=== PATIENT | male | born 1950 | race Caucasian/White ===

== ENCOUNTER 2020-08-18 08:50 | Inpatient (IN) | payer MEDICARE, OTHER ==
[~2020-08-18] VITALS: Ht 177.8 cm; Wt 71.0 kg
[~2020-08-18 08:50] MED LIST: ALBU90OI INH; ASPI325 PO; ATOR20 PO; CILO100; CLOP75 PO; DIGO.125 PO; IRON18 MG PO; MULVIT PO
[2020-08-18 09:16] LABS: BASOPHILS ABSOLUTE AUTO 0.04 K/mm3 (0.00-0.23); BASOPHILS PERCENT AUTO 0 % (0-2); EOSINOPHILS ABSOLUTE AUTO 0.01 K/mm3 (0.00-0.68); EOSINOPHILS PERCENT AUTO 0 % (0-6); Hematocrit 37.4 % (37.0-53.0); Hemoglobin 12.6 g/dL (13.5-17.5); IMMATURE GRAN ABSOLUTE AUTO 0.18 K/mm3 (0.00-0.10); IMMATURE GRAN PERCENT AUTO 1 % (0-1); LYMPHOCYTES ABSOLUTE AUTO 0.78 K/mm3 (0.84-5.20); LYMPHOCYTES PERCENT AUTO 5 % (21-46); MONOCYTES ABSOLUTE AUTO 1.86 K/mm3 (0.16-1.47); MONOCYTES PERCENT AUTO 11 % (4-13); Mean Corpuscular HGB Conc 33.7 g/dL (31.5-36.5); Mean Corpuscular Volume 80 fL (80-100); Mean Platelet Volume 12.7 fL (9.1-12.4); NEUTROPHILS ABSOLUTE AUTO 13.62 K/mm3 (1.96-9.15); NEUTROPHILS PERCENT AUTO 83 % (41-73); Platelet Count 146 K/mm3 (150-400); RDW Standard Deviation 40.4 fL (35.1-46.3); Red Blood Cell Count 4.66 M/mm3 (4.30-5.90); White Blood Cell Count 16.49 K/mm3 (4.00-11.30)
[2020-08-18 09:38] LABS: Creatine Kinase MB 30.9 ng/mL (0.0-3.6)
[2020-08-18 09:40] LABS: Alanine Aminotransfer (ALT/SGP 64 U/L (12-78); Albumin, Blood 2.1 g/dL (3.4-5.0); Albumin/Globulin Ratio 0.6 (0.8-1.8); Alk Phos 110 U/L (50-136); Aspartate Aminotrans (AST/SGOT 216 U/L (12-37); Bilirubin, Total 1.5 mg/dL (0.1-1.0); Blood Urea Nitrogen 21 mg/dL (8-24); Bun/Creatinine Ratio 27.1 (12.0-20.0); CO2, Blood 17 mmol/L (21-32); Calcium, Blood 7.7 mg/dL (8.5-10.1); Chloride, Blood 85 mmol/L (98-108); Creatinine, Blood 0.78 mg/dL (0.60-1.20); Globulin, Blood 3.5 g/dL (2.2-4.0); Glomerular Filtration Rate >60 (60-); Glucose, Blood 55 mg/dL (70-99); Potassium, Blood 4.4 mmol/L (3.5-5.5); Total Protein, Blood 5.6 g/dL (6.4-8.2)
[2020-08-18 09:46] LABS: Anion Gap 17 mmol/L (6-16); Sodium, Blood 119 mmol/L (136-145)
[2020-08-18 09:56] LABS: CPK Creatine Kinase 1748 U/L (39-308); Creatine Kinase MB Index 1.8 (0.0-4.0)
[2020-08-18] MEDS ORDERED: METO100 PO (13:30)
[2020-08-18] MEDS ORDERED: LISI5 PO (13:30)
[2020-08-18] MEDS ORDERED: PARO10 PO ×2 (13:31→17:22)
[2020-08-18 13:45] LABS: Base Excess Venous -4.2 mmol/L; Bicarbonate Venous 21.3 mmol/L (24.0-30.0); PCO2 Venous 35.8 mmHg (38-42); PO2 Venous 87.1 mmHg (38-42); pH Blood Venous 7.38 (7.34-7.37)
--- NOTE | 2020-08-18 14:15 | NUR ---
PCU 11 CLEAN AT 1415. Called Keeley over José Miguel, asked her to call PCU when ready for report and to admit pt to PCU 11.
[2020-08-18] MEDS ORDERED: ELIQUIS5 M3 PO (14:44)
--- NOTE | 2020-08-18 15:35 | NUR ---
Called ED, got report from RAVI Mina. Anticipate arrival to PCU 11 shortly.
[2020-08-18 15:40] LABS: U Amphetamine Screen Not Detected; U Barbituate Screen Not Detected; U Benzodiazapine Screen Not Detected; U Buprenorphine Screen Not Detected; U Cannabinoids Screen Not Detected; U Cocaine Screen Not Detected; U Methadone Screen Not Detected; U Methamphetamine Screen Not Detected; U Opiates Screen Not Detected; U Oxycodone Screen Not Detected; U Phencyclidine Screen Not Detected; U Propoxyphene Screen Not Detected
[2020-08-18 16:37] LABS: Anion Gap 15 mmol/L (6-16); Blood Urea Nitrogen 21 mg/dL (8-24); Bun/Creatinine Ratio 28.3 (12.0-20.0); CO2, Blood 21 mmol/L (21-32); Chloride, Blood 82 mmol/L (98-108); Creatinine, Blood 0.74 mg/dL (0.60-1.20); Glomerular Filtration Rate >60 (60-); Glucose, Blood 87 mg/dL (70-99); Potassium, Blood 4.5 mmol/L (3.5-5.5); Sodium, Blood 118 mmol/L (136-145)
[2020-08-18 17:45] LABS: Source, Urine Clean Catch
--- NOTE | 2020-08-18 18:35 | NUR ---
Frail, alert and oriented on arrival from the ED. States he is very hungry, but that he hasn't been eating much over the past year, so his "stomach is small". Ate one applesauce and requested mashed potatoes later. Some tremors of his hands noted, but he is tired and said that he wanted to take a nap after he ate. Appears to be sleeping at this time, but awakens easily to conversation. Atrial fibrillation rate 103-106 on arrival from ED, with banana bag infusing. Na level dropped to 118, so that was dc'd and NS restarted at 125/hour as ordered. Heart rate goes up to 150 during activity of eating dinner, but now after administration of metoprolol one hour ago, rate is 93-102. Lungs are coarse and wheezy. Not requiring supplemental oxygen at this time. Frequent, coarse sounding cough producing clear, thin sputum, which pt states is because of a post-nasal drip. Skin appears fragile, with multiple abrasions, skin tears, scabs and bruises. These wounds were cleaned as much as possible and then covered with yellow xeroform gauze and then covered withe kerlix and secured with MT spandage. The pt has no c/o pain. CIWA score 2 at 1730. His daughter Danielle was here when the pt arrived from the ED, and said that a year ago the pt said that he didn't want any one coming to see him because of covid, but she thinks that it probably wasn't a good idea to not check in on him. States she wanted to respect his privacy, but today she discovered that the mobild home that he lives in hasn't been cleaned in a year, and that going forward she will make sure that they check in on him at least one week a month.
[2020-08-18 18:49] LABS: Bilirubin, Urine Neg (Neg); Blood, Urine 1+ (Neg); Glucose Qualitative, Urine Neg (Neg); Ketones, Urine 3+ (Neg); Leukocyte Esterase, Urine Neg (Neg); Nitrite, Urine Neg (Neg); Protein, Urine Neg (Neg); Specific Gravity, Urine 1.025 (1.003-1.022); Urobilinogen, Urine 1+ (Normal)
[2020-08-18 18:55] LABS: Appearance, Urine Clear (Clear); Color, Urine Yellow (P-Yellow)
[2020-08-18 18:57] LABS: Amorphous Light (0-Heavy); Bacteria Rare /hpf; Hyaline Casts 25-50 /lpf (0-2); Mucus Light (0-Heavy); Squamous Epithelial Cells Rare /hpf (Few); White Blood Cells, Urine Not Seen /hpf (0-5)
[2020-08-19 04:33] LABS: BASOPHILS ABSOLUTE AUTO 0.01 K/mm3 (0.00-0.23); BASOPHILS PERCENT AUTO 0 % (0-2); EOSINOPHILS ABSOLUTE AUTO 0.09 K/mm3 (0.00-0.68); EOSINOPHILS PERCENT AUTO 1 % (0-6); Hematocrit 30.9 % (37.0-53.0); Hemoglobin 10.4 g/dL (13.5-17.5); IMMATURE GRAN ABSOLUTE AUTO 0.13 K/mm3 (0.00-0.10); IMMATURE GRAN PERCENT AUTO 1 % (0-1); LYMPHOCYTES ABSOLUTE AUTO 0.76 K/mm3 (0.84-5.20); LYMPHOCYTES PERCENT AUTO 7 % (21-46); MONOCYTES ABSOLUTE AUTO 1.23 K/mm3 (0.16-1.47); MONOCYTES PERCENT AUTO 12 % (4-13); Mean Corpuscular HGB 26.7 pg (26.0-34.0); Mean Corpuscular HGB Conc 33.7 g/dL (31.5-36.5); Mean Corpuscular Volume 79 fL (80-100); Mean Platelet Volume 12.1 fL (9.1-12.4); NEUTROPHILS ABSOLUTE AUTO 8.17 K/mm3 (1.96-9.15); NEUTROPHILS PERCENT AUTO 79 % (41-73); Platelet Count 116 K/mm3 (150-400); RDW Standard Deviation 40.2 fL (35.1-46.3); White Blood Cell Count 10.39 K/mm3 (4.00-11.30)
[2020-08-19 04:57] LABS: Alanine Aminotransfer (ALT/SGP 57 U/L (12-78); Albumin, Blood 1.9 g/dL (3.4-5.0); Albumin/Globulin Ratio 0.6 (0.8-1.8); Alk Phos 94 U/L (50-136); Anion Gap 11 mmol/L (6-16); Aspartate Aminotrans (AST/SGOT 158 U/L (12-37); Bilirubin, Total 1.2 mg/dL (0.1-1.0); Blood Urea Nitrogen 15 mg/dL (8-24); Bun/Creatinine Ratio 23.7 (12.0-20.0); CO2, Blood 22 mmol/L (21-32); CPK Creatine Kinase 741 U/L (39-308); Calcium, Blood 7.8 mg/dL (8.5-10.1); Chloride, Blood 90 mmol/L (98-108); Creatinine, Blood 0.63 mg/dL (0.60-1.20); Glomerular Filtration Rate >60 (60-); Glucose, Blood 87 mg/dL (70-99); Magnesium, Blood 1.6 mg/dL (1.6-2.4); Phosphorus, Blood 2.6 mg/dL (2.5-4.9); Potassium, Blood 4.1 mmol/L (3.5-5.5); Sodium, Blood 123 mmol/L (136-145); Total Protein, Blood 4.9 g/dL (6.4-8.2)
--- NOTE | 2020-08-19 05:13 | NUR ---
SHIFT SUMMARY PATIENT IS ALERT AND ORIENTED. CIWA 8 AT BEGINNING OF SHIFT, MEDICATED PER EMAR. CIWA OF 4 THE REST OF SHIFT. PATIENT DOES NOT USE CALL LIGHT, BED ALARM NEEDED. A.FIB 80s-110. PATIENT SLEPT MOST THE NIGHT. 2 PERSON ASSIST TO BSC. ROLLS TO SIDE INDEPENDENTLY IN BED. 02 SATS >95% ON RA. VSS, NO ACUTE CHANGES. CALL LIGHT IN REACH. BED ALARM ON.
--- NOTE | 2020-08-19 11:58 | NUR ---
PATIENT BECAME VERY LETHARGIC AND IS DIFFICULT TO ROUSE. MD ASSESSED PATIENT. BP 89/59. DR RICKETTS GAVE VERBAL ORDERS FOR 1L BOLUS OF NS.
[2020-08-19] MEDS ORDERED: LANOXIN125 MCG PO (14:30)
[2020-08-19] MEDS ORDERED: GABA300 PO (14:32)
[2020-08-19] MEDS ORDERED: CLOT10 MT (14:34)
--- NOTE | 2020-08-19 15:45 | NUR ---
PATIENT HAS BEEN UP AND DOWN WITH HIS ALERTNESS TODAY. HE IS SITTING UPRIGHT EATING AND TALKING ONE MOMENT, THEN THE NEXT MOMENT HE'S SLEEPING, VERY LETHARGIC AND DIFFICULT TO AROUSE. PATIENT COMPLETED 1L IV BOLUS AND CONTINUES ON NS @ 125/HR PER EMAR. BP RUNNING LOW. PATIENT IS ASLEEP IN BED AT THIS TIME. PATIENT REPOSITIONED NEEDED TO GET PRESSURE OFF HIS BUTTOCKS. PATIENT ASLEEP IN BED AT THIS TIME. CALL LIGHT WITHIN REACH.
[2020-08-20 04:17] LABS: Alanine Aminotransfer (ALT/SGP 58 U/L (12-78); Albumin, Blood 1.8 g/dL (3.4-5.0); Albumin/Globulin Ratio 0.6 (0.8-1.8); Alk Phos 91 U/L (50-136); Anion Gap 8 mmol/L (6-16); Aspartate Aminotrans (AST/SGOT 120 U/L (12-37); Bilirubin, Total 0.8 mg/dL (0.1-1.0); Blood Urea Nitrogen 9 mg/dL (8-24); Bun/Creatinine Ratio 16.7 (12.0-20.0); CO2, Blood 25 mmol/L (21-32); Calcium, Blood 7.7 mg/dL (8.5-10.1); Chloride, Blood 97 mmol/L (98-108); Creatinine, Blood 0.54 mg/dL (0.60-1.20); Glomerular Filtration Rate >60 (60-); Glucose, Blood 99 mg/dL (70-99); Magnesium, Blood 1.6 mg/dL (1.6-2.4); Potassium, Blood 3.6 mmol/L (3.5-5.5); Sodium, Blood 130 mmol/L (136-145); Total Protein, Blood 4.8 g/dL (6.4-8.2)
--- NOTE | 2020-08-20 04:54 | NUR ---
SHIFT SUMMARY PATIENT IS ALERT AND ORIENTED, HAS MOMENTS OF CONFUSION BUT IS EASILY REORIENTED. COOPERATIVE WITH CARE. PATIENTS ARM WOUNDS WEEPING, BANDAGES CHANGED TWICE ALONG WITH BED LINENS. 02 SATS >95% ON RA. REPOSITOINED PATIENT Q2 HOURS. HR 80s-110, INCREASES WITH ACTIVITY. PATIENT USES URINAL BUT HAS MOMENTS OF INCONTINENCE. VSS, NO ACUTE CHANGES. CALL LIGHT IN REACH, BED ALARM ON.
[2020-08-20 05:46] LABS: BASOPHILS ABSOLUTE AUTO 0.02 K/mm3 (0.00-0.23); BASOPHILS PERCENT AUTO 0 % (0-2); EOSINOPHILS ABSOLUTE AUTO 0.13 K/mm3 (0.00-0.68); EOSINOPHILS PERCENT AUTO 2 % (0-6); IMMATURE GRAN ABSOLUTE AUTO 0.09 K/mm3 (0.00-0.10); IMMATURE GRAN PERCENT AUTO 1 % (0-1); LYMPHOCYTES ABSOLUTE AUTO 0.69 K/mm3 (0.84-5.20); LYMPHOCYTES PERCENT AUTO 8 % (21-46); MONOCYTES ABSOLUTE AUTO 1.16 K/mm3 (0.16-1.47); MONOCYTES PERCENT AUTO 14 % (4-13); Mean Corpuscular HGB 26.7 pg (26.0-34.0); Mean Corpuscular HGB Conc 33.3 g/dL (31.5-36.5); Mean Corpuscular Volume 80 fL (80-100); Mean Platelet Volume 12.8 fL (9.1-12.4); NEUTROPHILS ABSOLUTE AUTO 6.41 K/mm3 (1.96-9.15); NEUTROPHILS PERCENT AUTO 76 % (41-73); Platelet Count 123 K/mm3 (150-400); RDW Coefficient Variation 14.4 % (11.7-14.2); RDW Standard Deviation 41.7 fL (35.1-46.3); Red Blood Cell Count 3.75 M/mm3 (4.30-5.90)
--- NOTE | 2020-08-20 09:28 | NUR ---
RETURNED TO PATIENTS DAUGHTER AND GAVE AN UPDATE.
--- NOTE | 2020-08-20 15:37 | NUR ---
PATIENT CONTINUES TO BE LETHARGIC AND SLEEPING THE MAJORITY OF THE DAY. HE DOES AWAKEN TO PAIN; AND HAS AWAKEN PERIODICALLY T/O THE DAY AND COMMUNICATED WITH STAFF. BP WAS ELEVATED AT NOON HOWEVER PATIENT HAD NOT HAD HIS MORNING MEDICATIONS D/T LETHARGY. PATIENT TOOK HIS MEDICATIONS AT THAT TIME AND HIS VITALS ARE ALL STABLE AND WNL AT THIS TIME. MEDS GIVEN IN APPLESAUCE AND PATIENT TOOK WITHOUT PROBLEM. WOUND CARE PROVIDED TO ALL WOUNDS AT [facility]. CLEASED SKIN TEARS WITH WOUND CLEANSER AND GAUZE AND WRAPPED THEM WITH XEROFORM, NON-ADHERANT PADS, ABD PADS AND KERLIX. PATIENT TOLERATED WELL. PATIENT IS NOW RESTING IN BED WATCHING TV. PATIENT REPOSITIONED PER HIS REQUEST. CALL LIGHT WITHIN REACH.
--- NOTE | 2020-08-21 04:05 | NUR ---
FIELD EVIDENCE TECHNICIAN SUMMARY PT WAS AWAKE AT THE START OF THE SHIFT TALKING TO US AND WATCHING TV. THE PT DENIED ANY PAIN OR NAUSEA THIS SHIFT. CIWA'S HAVE BEEN A 2 DUE TO A CONSTANT TREMOR HOWEVER NO CIWA MEDICATIONS GIVEN BUT PT AGAIN BECAME SOMEWHAT OBTUNDED HE SLEPT VERY HEAVILY THROUGHOUT THE SHIFT. PT HAS REMAINED AFIB IN THE 80-90'S THROUGHOUT THE SHIFT. BANDAGES CHANGED ON LEFT ARM DUE TO EXCESSIVE WEEPING. THE PT HAS MAINTAINED O2 SATS >95% ON RM AIR. VSS, WCTM.
[2020-08-21 08:46] LABS: BASOPHILS ABSOLUTE AUTO 0.02 K/mm3 (0.00-0.23); BASOPHILS PERCENT AUTO 0 % (0-2); EOSINOPHILS ABSOLUTE AUTO 0.12 K/mm3 (0.00-0.68); EOSINOPHILS PERCENT AUTO 2 % (0-6); Hematocrit 31.6 % (37.0-53.0); Hemoglobin 10.5 g/dL (13.5-17.5); IMMATURE GRAN ABSOLUTE AUTO 0.07 K/mm3 (0.00-0.10); IMMATURE GRAN PERCENT AUTO 1 % (0-1); LYMPHOCYTES ABSOLUTE AUTO 0.67 K/mm3 (0.84-5.20); LYMPHOCYTES PERCENT AUTO 9 % (21-46); MONOCYTES ABSOLUTE AUTO 1.09 K/mm3 (0.16-1.47); MONOCYTES PERCENT AUTO 14 % (4-13); Mean Corpuscular HGB 26.6 pg (26.0-34.0); Mean Corpuscular HGB Conc 33.2 g/dL (31.5-36.5); Mean Corpuscular Volume 80 fL (80-100); Mean Platelet Volume 11.9 fL (9.1-12.4); NEUTROPHILS ABSOLUTE AUTO 5.62 K/mm3 (1.96-9.15); NEUTROPHILS PERCENT AUTO 74 % (41-73); Platelet Count 124 K/mm3 (150-400); RDW Coefficient Variation 14.5 % (11.7-14.2); RDW Standard Deviation 42.2 fL (35.1-46.3); Red Blood Cell Count 3.94 M/mm3 (4.30-5.90); White Blood Cell Count 7.59 K/mm3 (4.00-11.30)
[2020-08-21 09:07] LABS: Albumin, Blood 1.8 g/dL (3.4-5.0); Anion Gap 7 mmol/L (6-16); Blood Urea Nitrogen 5 mg/dL (8-24); Bun/Creatinine Ratio 9.6 (12.0-20.0); CO2, Blood 26 mmol/L (21-32); Calcium, Blood 7.8 mg/dL (8.5-10.1); Chloride, Blood 101 mmol/L (98-108); Creatinine, Blood 0.52 mg/dL (0.60-1.20); Glomerular Filtration Rate >60 (60-); Glucose, Blood 91 mg/dL (70-99); Magnesium, Blood 1.3 mg/dL (1.6-2.4); Phosphorus, Blood 2.8 mg/dL (2.5-4.9); Potassium, Blood 3.4 mmol/L (3.5-5.5); Sodium, Blood 134 mmol/L (136-145)
--- NOTE | 2020-08-21 19:26 | NUR ---
SHIFT SUMMARY: PT A&O T/OUT SHIFT WITH PERIODS OF REST BUT EASY TO AROUSE. RESP EVEN AND UNLABORED ON ROOM AIR. PT IN AFIB T/OUT SHIFT AND HR FOUND TO BE TRENDING UPWARD OF 130-200 BPM AT TIMES, PT DENIES SOB OR CHEST PAIN. PROVIDER NOTIFIED, ORDERS PLACED. DRESSINGS TO BUE REMOVED, WOUNDS CLEANED AND LEFT OPEN TO AIR. PT RECEIVED BED BATH THIS AFTERNOON, OPEN WOUND NOTED TO COCCYX, MEPILEX PLACED TO COCCYX. PT REQUIRED 3 ATTEMPTS WITH URINAL TO PRODUCE OUTPUT, PT STATES THIS IS NORMAL FOR HIM. AT THIS TIME PT IS RESTING QUIETLY IN BED. REPORT HAS BEEN GIVEN TO RAVI SALEH TO ASSUME CARE OF PT.
--- NOTE | 2020-08-22 04:04 | NUR ---
NATIONAL ACCOUNT MANAGER SUMMARY PT IS MORE AWAKE THIS SHIFT COMPARED TO PREVIOUS NIGHT BUT STATES THAT HE WANTS TO BE LEFT ALONE TO SLEEP. CIWA'S REMAIN A 2 DUE TO TREMOR BUT NO NEW NEUR S/S. AMIODARONE GTT STARTED AT 2000 AND RATE REDUCED AT 0200, PTS HR IS STILL AFIB BUT NOW AVERAGING AROUND 90 BPM. PT IS RECEIVING NS AT 125ML/HR BUT VOIDING ALMOST NO URINE AND BLADDER SCANS SHOW <250ML. PT HAS ALOT OF SECRETIONS BUT HAS MAINTAINED >95% O2 ON RM AIR. WOUNDS WERE LEFT TO AIR OUT FOR MUCH OF DAYSHIFT AND CLEANED AND WRAPPED FOR HS. VSS, WCTM.
[2020-08-22 12:06] LABS: Albumin, Blood 1.8 g/dL (3.4-5.0); Anion Gap 7 mmol/L (6-16); Blood Urea Nitrogen 6 mg/dL (8-24); Bun/Creatinine Ratio 12.1 (12.0-20.0); CO2, Blood 25 mmol/L (21-32); Calcium, Blood 7.7 mg/dL (8.5-10.1); Chloride, Blood 104 mmol/L (98-108); Glomerular Filtration Rate >60 (60-); Glucose, Blood 112 mg/dL (70-99); Magnesium, Blood 1.5 mg/dL (1.6-2.4); Phosphorus, Blood 2.7 mg/dL (2.5-4.9); Potassium, Blood 4.1 mmol/L (3.5-5.5); Sodium, Blood 136 mmol/L (136-145)
[2020-08-22 12:25] LABS: BASOPHILS ABSOLUTE AUTO 0.05 K/mm3 (0.00-0.23); BASOPHILS PERCENT AUTO 1 % (0-2); EOSINOPHILS ABSOLUTE AUTO 0.03 K/mm3 (0.00-0.68); EOSINOPHILS PERCENT AUTO 0 % (0-6); Hemoglobin 10.3 g/dL (13.5-17.5); IMMATURE GRAN PERCENT AUTO 1 % (0-1); LYMPHOCYTES ABSOLUTE AUTO 0.61 K/mm3 (0.84-5.20); LYMPHOCYTES PERCENT AUTO 7 % (21-46); MONOCYTES ABSOLUTE AUTO 1.29 K/mm3 (0.16-1.47); MONOCYTES PERCENT AUTO 15 % (4-13); Mean Corpuscular HGB 27.2 pg (26.0-34.0); Mean Corpuscular HGB Conc 33.2 g/dL (31.5-36.5); Mean Corpuscular Volume 82 fL (80-100); Mean Platelet Volume 12.6 fL (9.1-12.4); NEUTROPHILS ABSOLUTE AUTO 6.49 K/mm3 (1.96-9.15); NEUTROPHILS PERCENT AUTO 76 % (41-73); Platelet Count 149 K/mm3 (150-400); RDW Coefficient Variation 14.8 % (11.7-14.2); RDW Standard Deviation 43.6 fL (35.1-46.3); Red Blood Cell Count 3.79 M/mm3 (4.30-5.90); White Blood Cell Count 8.57 K/mm3 (4.00-11.30)
--- NOTE | 2020-08-22 15:38 | NUR ---
Daughter Danielle here, visited with patient and then also had conversation with myself and maintenance planner, Amara Connolly RN. Danielle will be back tomorrow to machine operator hop picker information from maintenance planner in order to help facilitate pt's discharge to SNF (most likely), and set up for [employer] assistance for pt's future needs. Francis has not been eating today, and mostly just wants to sleep when he is not being given care. His daughter says that he went back to drinking after he lost his . Encouraged Francis to eat and drink to regain strength, and get up OOB to the chair 2-3 times per day to help gain strength so that he he will be able to eventually return to a more independent living situation.
--- NOTE | 2020-08-22 17:28 | NUR ---
amiodarone gtt off after talking with Dr. Real and discussing pt's heart rate and blood pressure. Heart rate has been 60-80 at rest since receiving 2nd dose of metoprolol.
--- NOTE | 2020-08-22 17:43 | NUR ---
Pt refused to get OOB to chair for dinner. Refused to sit on side of bed for eating. Sitting upright, as much as is possible, eating mechanical soft diet in bed.
--- NOTE | 2020-08-22 18:10 | NUR ---
summary Pt is awake, cooperative and oriented, but affect withdrawn. Refused breakfast and lunch. Ate dinner, but refused OOB to chair for both the therapist and the nursing staff today. Did get up and use the BSC once. Heart rate much better controlled with the second dose of metoprolol this morning, bradycardia to 50s reported to Dr. Real as well, while sleeping. Amiodarone gtt off this evening. Need to verify home medications again with pharmacy; pt states that he is only taking 3 medications at home, but that he had more prescribed to him. STates that they were too expensive, especially the eliquis, so he was trying to take the ones that were for his heart, and leave the other ones unfilled. His step-daughter Danielle was here this afternoon, spoke with space planner. I spoke with daughter Jaimee by phone this afternoon, and she is planning on coming to the hospital tomorrow during visiting hours. Updated her on pt condition, and the probable plan for his discharge to a SNF for rehab.
--- NOTE | 2020-08-22 22:00 | NUR ---
REFUSED CARE PT'S MEPILEX WAS REMOVED FROM COCCYX AFTER IT WAS SOILD FROM HAVING A BM ON THE BSC. ONCE THE PT WAS RETURNED TO BED HE REFUSED TO ALLOW ME TO PLACE ANOTHER MEPILEX ON HIS COCCYX. I WILL ATTEMPT TO REPLACE IT AT A LATER TIME. PT DID ALLOW ME TO CHANGE DRESSINGS ON ARMS.
[2020-08-23 04:38] LABS: Albumin, Blood 1.7 g/dL (3.4-5.0); Anion Gap 5 mmol/L (6-16); Blood Urea Nitrogen 6 mg/dL (8-24); Bun/Creatinine Ratio 11.7 (12.0-20.0); CO2, Blood 27 mmol/L (21-32); Calcium, Blood 7.4 mg/dL (8.5-10.1); Chloride, Blood 105 mmol/L (98-108); Creatinine, Blood 0.51 mg/dL (0.60-1.20); Glomerular Filtration Rate >60 (60-); Glucose, Blood 102 mg/dL (70-99); Magnesium, Blood 1.6 mg/dL (1.6-2.4); Phosphorus, Blood 2.8 mg/dL (2.5-4.9); Potassium, Blood 3.9 mmol/L (3.5-5.5); Sodium, Blood 137 mmol/L (136-145)
--- NOTE | 2020-08-23 04:44 | NUR ---
LEAF COVERER SUMMARY THE PT IS MUCH MORE AWAKE THIS SHIFT COMPARED TO THE PREVIOUS NIGHT. THE PT WAS ABLE TO GET TO THE BSC AND HAVE A BM AT THE START OF THE SHIFT. THE PT HAS BEEN AWAKE FOR MOST OF THE NIGHT. THE PT HAS HAD BETTER URINE OUTPUT THIS SHIFT COMPARED TO PREVIOUS NIGHT. O2 SAT >94% ON RM AIR. BP HAS BEEN ELEVATED THIS SHIFT SO DR. STAPLETON WAS CONTACTED THIS AM AND 10MG OF LISINOPRIL WAS ORDERED AND GIVEN. PT'S HR HAS REMAINED AFIBE AVERAGING HIGH 80'S TO MID 90'S BPM. CIWA'S HAVE REMAINED AT A ONE HIS TREMOR SEEMS REDUCED FROM PAST TWO NIGHTS. WCTM.
[2020-08-23 12:23] LABS: Influenza A, PCR NEGATIVE (NEGATIVE); Influenza B, PCR NEGATIVE (NEGATIVE); Resp Syncytial Virus, PCR NEGATIVE (NEGATIVE); SARS-Cov-2 (COVID-19) PCR, MMC NEGATIVE (NEGATIVE)
--- NOTE | 2020-08-23 12:38 | NUR ---
"Francis" is alert, oriented, appropriate in conversation, but withdrawn and often refusing meals or OOB for activity. He has only wanted to use the urinal in bed, occasionally eat a meal, and sleep in between any of those activities. Seems very withdrawn and perhaps depressed. Asked what his plan is for oil heaterman, and he says that he doesn't know yet. Asked if he is talking with his daughters about that, and he says not yet. Coarse, nonproductive cough without sputum production. Encouraged to use the incentive spirometer, but he so far has not shown any interest. Skin is fragile, with wounds as documented. The old dressings were noted to be saturated with serous fluid, and so were removed and cleansed with skitegrity, and covered with xeroform/nonadherent dressings and then secured with additional absorbent material and kerlix, and MT spandage at noon. Pt tolerated the wound care, stated that it did not hurt. The wound beds were noted to have healthy granulation tissue in them, without the scabs and carpet fluff/dog hair which was embedded in them upon his arrival at admission. Photo documentation update unable to complete as camera was not working. Pt was up to chair with therapist, and also to bedside commode. Plan is for discharge to [facility] today at 2 pm.
[2020-08-23] MEDS ORDERED: ALBU2.5V5 INH (13:11)
[2020-08-23] MEDS ORDERED: ATOR20 PO (13:12)
[2020-08-23] MEDS ORDERED: MAGNESIUM OXID500 MG PO (13:12)
--- NOTE | 2020-08-23 13:31 | NUR ---
Pt's family here at the bedside. Updated on pt's condition and plan for transfer to [facility] expected around [address] [facility] at this time to give report.
--- NOTE | 2020-08-23 14:24 | NUR ---
Spoke with daughters and Workers Compensation Claims Supervisor Amara Barth in the pt's room just before discharge. Concern was expressed by the daughters because the pt will not be able to have visitors and they are concerned that without visitors the pt might be neglected and no one would know. Amara was able to explain more about the care given at SNF rehab, and how the would be able to communicate with the SNF as well. After discussing the situation, the pt said to his daughters, "Ok, let's give it a try," Daughters were also in agreement. Transport arrived at 1405 and pt was helped into wheelchair by FINANCIAL COMPLIANCE EXAMINER and FINANCIAL COMPLIANCE EXAMINER student, and taken out.
== END 2020-08-23 14:07 | DRG 896 ==
LOC: ER 08:50 → PCU 12:23 → ERHOLD 12:23 → PCU 16:00
PROVIDERS: Emergency Medicine; Internal Medicine; Nurse Practitioner Acute Care; ADMIT Family Medicine
DX: F10.239 Alcohol dependence with withdrawal, unspecified (principal); E43 Unspecified severe protein-calorie malnutrition; G92 Toxic encephalopathy; I48.20 Chronic atrial fibrillation, unspecified; S22.49XA Multiple fractures of ribs, unspecified side, initial encounter for closed fracture; E87.1 Hypo-osmolality and hyponatremia; M62.82 Rhabdomyolysis; R65.10 Systemic inflammatory response syndrome (SIRS) of non-infectious origin without acute organ dysfunction; E87.2 Acidosis; Z68.1 Body mass index [BMI] 19.9 or less, adult; Z20.822 Contact with and (suspected) exposure to COVID-19; F17.210 Nicotine dependence, cigarettes, uncomplicated; J44.9 Chronic obstructive pulmonary disease, unspecified; I73.9 Peripheral vascular disease, unspecified; I10 Essential (primary) hypertension; E86.0 Dehydration; E83.42 Hypomagnesemia; R13.10 Dysphagia, unspecified; Z74.09 Other reduced mobility; R26.9 Unspecified abnormalities of gait and mobility; W19.XXXA Unspecified fall, initial encounter; Y92.009 Unspecified place in unspecified non-institutional (private) residence as the place of occurrence of the external cause; Z95.820 Peripheral vascular angioplasty status with implants and grafts; Z79.899 Other long term (current) drug therapy
CPT/HCPCS: 0241U; 36415; 70450; 71045; 72100; 72192; 73030; 73502; 80048; 80053; 80069; 81001; 82550; 82553; 82803; 82947; 83605; 83735; 84100; 84295; 84443; 84484; 84550; 85025; 92526; 92610; 93005; 93010; 94760; 94762; 96374; 96375; 97110; 97161; 97165; 97530; 99285-25; A9270; C1751; J0282; J1160; J3411; J3475; J7030; J7042; J7060

== ENCOUNTER 2020-08-26 22:03 | Inpatient (IN) | payer MEDICARE, OTHER ==
[~2020-08-26] VITALS: Ht 182.9 cm; Wt 75.3 kg
[~2020-08-26 22:03] MED LIST changes: +ALBU2.5V5 INH; +CLOT10 MT; +ELIQUIS5 M3 PO; +GABA300 PO; +LANOXIN125 MCG PO; +LISI5 PO; +MAGNESIUM OXID500 MG PO; +METO100 PO; +PARO10 PO
[2020-08-26 22:20] LABS: Calcium, Ionized (POC) 1.04 mmol/L (1.10-1.46); Chloride (POC) 108 mmol/L (98-108); Creatinine (POC) 1.6 mg/dL (0.8-1.3); Glucose (ISTAT POC) 232 mg/dL (70-99); Hemoglobin (POC) 9.2 g/dL (13.5-17.5); Potassium (POC) 4.1 mmol/L (3.5-5.5); Sodium (POC) 138 mmol/L (135-148); Total CO2 (POC) 23 mmol/L (21-32)
[2020-08-26 22:44] LABS: PO2 Arterial 96.2 mmHg (80-100)
[2020-08-26 22:45] LABS: PCO2 Arterial 65.1 mmHg (35-45); pH Blood Arterial 7.26 (7.35-7.45)
[2020-08-26 22:50] LABS: Hematocrit 34.8 % (37.0-53.0); Hemoglobin 10.7 g/dL (13.5-17.5); Mean Corpuscular HGB 26.6 pg (26.0-34.0); Mean Corpuscular HGB Conc 30.7 g/dL (31.5-36.5); Mean Corpuscular Volume 87 fL (80-100); Mean Platelet Volume 11.9 fL (9.1-12.4); Platelet Count 162 K/mm3 (150-400); RDW Coefficient Variation 14.7 % (11.7-14.2); RDW Standard Deviation 46.8 fL (35.1-46.3); Red Blood Cell Count 4.02 M/mm3 (4.30-5.90); White Blood Cell Count 10.78 K/mm3 (4.00-11.30)
[2020-08-26 23:05] LABS: International Normalized Ratio 1.36; Prothrombin Time Results 14.3 Sec (9.7-11.5)
[2020-08-26 23:11] LABS: Alanine Aminotransfer (ALT/SGP 61 U/L (12-78); Albumin, Blood 1.5 g/dL (3.4-5.0); Albumin/Globulin Ratio 0.5 (0.8-1.8); Alk Phos 104 U/L (50-136); Anion Gap 7 mmol/L (6-16); Aspartate Aminotrans (AST/SGOT 67 U/L (12-37); BAND PERCENT MAN 33 % (0-8); BASOPHILS PERCENT MAN 0 % (0-2); Bilirubin, Total 0.4 mg/dL (0.1-1.0); Blood Urea Nitrogen 16 mg/dL (8-24); Bun/Creatinine Ratio 19.1 (12.0-20.0); CO2, Blood 32 mmol/L (21-32); Calcium, Blood 7.8 mg/dL (8.5-10.1); Chloride, Blood 105 mmol/L (98-108); Creatinine, Blood 0.84 mg/dL (0.60-1.20); EOSINOPHILS PERCENT MAN 0 % (0-6); Ethanol (Alcohol), Blood, Med <3 mg/dL; Globulin, Blood 3.3 g/dL (2.2-4.0); Glomerular Filtration Rate >60 (60-); Glucose, Blood 151 mg/dL (70-99); LYMPHOCYTES ABSOLUTE MAN 0.64 K/mm3 (0.84-5.20); LYMPHOCYTES PERCENT MAN 6 % (21-46); METAMYELOCYTE PERCENT MAN 1 % (0-0); MONOCYTES ABSOLUTE MAN 0.75 K/mm3 (0.16-1.47); MONOCYTES PERCENT MAN 7 % (4-13); MYELOCYTE ABSOLUTE MAN 0.32 K/mm3 (0.00-0.00); MYELOCYTE PERCENT MAN 3 % (0-0); Magnesium, Blood 3.1 mg/dL (1.6-2.4); NEUTROPHILS ABSOLUTE MAN 8.94 K/mm3 (1.96-9.15); Potassium, Blood 3.8 mmol/L (3.5-5.5); SEG NEUTROPHILS PERCENT MAN 50 % (41-73); Sodium, Blood 144 mmol/L (136-145); TOTAL CELLS COUNTED 100; Total Protein, Blood 4.8 g/dL (6.4-8.2); Troponin I 0.021 ng/mL (0.000-0.040)
[2020-08-26 23:20] LABS: CPK Creatine Kinase 58 U/L (39-308)
--- NOTE | 2020-08-26 23:30 | NUR ---
Patient's daughters are in ER family consult rm. They tell me about patient's loss of his spouse, his medical history and his alcoholism. They tell me about their regrets and fears. I conduct a life review of patient, and provide therapeutic listening, pastoral risk reduction counselor, and prayer. They repond well and show signs of being comforted.
[2020-08-26 23:43] LABS: Influenza A, PCR NEGATIVE (NEGATIVE); Influenza B, PCR NEGATIVE (NEGATIVE); Resp Syncytial Virus, PCR NEGATIVE (NEGATIVE); SARS-Cov-2 (COVID-19) PCR, MMC NEGATIVE (NEGATIVE)
--- NOTE | 2020-08-27 00:50 | NUR ---
ADMIT RECEIVED FROM ER- INTUBATED AC 24, TV 400, PEEP 5, FIO2 60%. ETT 7.5, 26 AT GUMS. SEDATED WITH PROPOFOL AT 10MCG/KG/MIN. PT MOVES ALL EXTREMITIES AND WITHDRAWS FROM NOXIOUS STIMULI. NOT FOLLOWING COMMANDS. LOCALIZES PAIN. HR 90s-100S, APPEARS TO BE NSR, BUT IT HARD TO SEE D/T PT SHAKING. BP STABLE WITH LEVOPHED INFUSING AT 20MCG/MIN. AFEBRILE. OG PLACED TO LIS- NO DRAINAGE NOTED AT THIS TIME. WRIGHT PATENT AND DRAINING DARK YELLOW URINE. RIJ CENTRAL LINE NOTED. MULTIPLE SKIN TEARS NOTED- PICTURES TAKEN. COCCYX SLIGHTLY PINK. SEE ADMIT ASSESSMENT FOR FULL ASSESSMENT.
[2020-08-27 01:48] LABS: Source, Urine Catheter
[2020-08-27 01:55] LABS: Bilirubin, Urine Neg (Neg); Blood, Urine 3+ (Neg); Glucose Qualitative, Urine Neg (Neg); Ketones, Urine Neg (Neg); Leukocyte Esterase, Urine Neg (Neg); Nitrite, Urine Neg (Neg); Protein, Urine 2+ (Neg); Specific Gravity, Urine 1.025 (1.003-1.022); Urobilinogen, Urine NORM (Normal)
[2020-08-27 01:58] LABS: Appearance, Urine Turbid (Clear); Color, Urine Yellow (P-Yellow)
[2020-08-27 02:05] LABS: Amorphous Heavy (0-Heavy); Bacteria Rare /hpf; Squamous Epithelial Cells Rare /hpf (Few); White Blood Cells, Urine Rare /hpf (0-5)
[2020-08-27 02:06] LABS: U Amphetamine Screen Not Detected; U Barbituate Screen Not Detected; U Benzodiazapine Screen DETECTED; U Buprenorphine Screen Not Detected; U Cannabinoids Screen Not Detected; U Cocaine Screen Not Detected; U Methadone Screen Not Detected; U Methamphetamine Screen Not Detected; U Opiates Screen Not Detected; U Oxycodone Screen Not Detected; U Phencyclidine Screen Not Detected; U Propoxyphene Screen Not Detected
[2020-08-27 05:03] LABS: PCO2 Arterial 36.4 mmHg (35-45); PO2 Arterial 66.6 mmHg (80-100); pH Blood Arterial 7.44 (7.35-7.45)
--- NOTE | 2020-08-27 05:55 | NUR ---
SHIFT SUMMARY NO ACUTE CHANGES. REMAINS INTUBATED. PROPOFOL NOW AT 30MCG/KG/MIN. CONTINUES TO WITHDRAW TO NOXIOUS STIMULI. MOVES ALL EXTREMITIES WEAKLY, BUT NOT FOLLOWING COMMANDS. BILATERAL SOFT WRIST RESTRAINTS REMAIN IN PLACE. OCCASIONAL FACIAL GRIMACING NOTED. LEVOPHED NOW AT 8MCG/MIN- BP STABLE. HR 90s. AFEBRILE T/O SHIFT. OG WITH MINIMAL LIGHT BROWN DRAINAGE. WRIGHT PATENT- 475CC URINE OUTPUT. NS INFUSING AT 125CC/HR PER ORDER. DAUGHTER IN TO VISIT WHEN FIRST ARRIVED TO UNIT. CALL TO [facility] TO REQUEST A MEDICATION LIST- STILL WAITING. WILL REPORT TO ONCOMING SHIFT WHEN AVAILABLE.
[2020-08-27 06:50] LABS: Hematocrit 30.6 % (37.0-53.0); Hemoglobin 9.7 g/dL (13.5-17.5); Mean Corpuscular HGB 26.9 pg (26.0-34.0); Mean Corpuscular HGB Conc 31.7 g/dL (31.5-36.5); Mean Corpuscular Volume 85 fL (80-100); Mean Platelet Volume 11.1 fL (9.1-12.4); Platelet Count 126 K/mm3 (150-400); RDW Coefficient Variation 14.7 % (11.7-14.2); RDW Standard Deviation 45.7 fL (35.1-46.3); White Blood Cell Count 12.04 K/mm3 (4.00-11.30)
[2020-08-27 07:05] LABS: Alanine Aminotransfer (ALT/SGP 62 U/L (12-78); Albumin, Blood 1.9 g/dL (3.4-5.0); Albumin/Globulin Ratio 0.7 (0.8-1.8); Alk Phos 81 U/L (50-136); Anion Gap 11 mmol/L (6-16); Aspartate Aminotrans (AST/SGOT 65 U/L (12-37); Bilirubin, Total 1.1 mg/dL (0.1-1.0); Blood Urea Nitrogen 15 mg/dL (8-24); Bun/Creatinine Ratio 19.5 (12.0-20.0); CO2, Blood 25 mmol/L (21-32); Calcium, Blood 7.6 mg/dL (8.5-10.1); Chloride, Blood 104 mmol/L (98-108); Creatinine, Blood 0.77 mg/dL (0.60-1.20); Globulin, Blood 2.8 g/dL (2.2-4.0); Glomerular Filtration Rate >60 (60-); Glucose, Blood 231 mg/dL (70-99); Potassium, Blood 3.4 mmol/L (3.5-5.5); Sodium, Blood 140 mmol/L (136-145); Total Protein, Blood 4.7 g/dL (6.4-8.2)
[2020-08-27 07:09] LABS: CPK Creatine Kinase 58 U/L (39-308)
--- NOTE | 2020-08-27 07:30 | NUR ---
ASSUMED CARE BEDSIDE REPORT RECIEVED. PT IS LAYING IN BED INTUBATED AND SEDATED. PROPOFOL AT 30 MCG/KG/MIN. VENT SETTINGS AC 24, TV 450, PEEP 5, FIO2 50%. PT WITH GAG AND COUGH WITH ORAL SUCTION. MINIMAL SECRETIONS NOTED. VITAL SIGNS STABLE. PT ON LEVOPHED AT 8 MCG/KG/MIN INITIALLY. CENTRAL LINE TO RIJ C/D/I. OGT IN PLACE WITH MINIMAL AMOUNT OF BROWN OUTPUT NOTED. WRIGHT TEMP PROBE IN PLACE WITH CLEAR YELLOW OUTPUT NOTED. SBW RESTRAINTS IN PLACE. PT WITH EXTENSIVE WEEPING SKIN TEARS TO BLE'S. SEE PHOTOS IN CHART. PT FAMILY UPDATED VIA PHONE. DR DEWITT UPDATED VIA PHONE. WILL CONTINUE TO MONITOR.
[2020-08-27 07:43] LABS: BAND PERCENT MAN 38 % (0-8); BASOPHILS ABSOLUTE MAN 0.12 K/mm3 (0.00-0.23); BASOPHILS PERCENT MAN 1 % (0-2); EOSINOPHILS PERCENT MAN 0 % (0-6); LYMPHOCYTES ABSOLUTE MAN 0.24 K/mm3 (0.84-5.20); LYMPHOCYTES PERCENT MAN 2 % (21-46); METAMYELOCYTE ABSOLUTE MAN 0.24 K/mm3 (0.00-0.00); METAMYELOCYTE PERCENT MAN 2 % (0-0); MONOCYTES ABSOLUTE MAN 0.48 K/mm3 (0.16-1.47); MONOCYTES PERCENT MAN 4 % (4-13); NEUTROPHILS ABSOLUTE MAN 10.95 K/mm3 (1.96-9.15); SEG NEUTROPHILS PERCENT MAN 53 % (41-73); TOTAL CELLS COUNTED 100
--- NOTE | 2020-08-27 12:06 | NUR ---
Echocardiogram completed.
[2020-08-27 14:44] LABS: CPK Creatine Kinase 52 U/L (39-308)
--- NOTE | 2020-08-27 17:52 | NUR ---
SHIFT SUMMARY NO ACUTE CHANGES THIS SHIFT. PT REMAINS INTUBATED AND SEDATED. VENT SETTINGS AC 18, TV 450, PEEP 5, FIO2 40%. PT REMAINS SEDATED WITH PROPOFOL AT 30 MCG/KG/MIN. PT GRIMMACES WITH ORAL CARE. COUGH AND GAG PRESENT. PT WITH SLIGHT TREMOR NOTED. PT NOT MOVING EXTREMITIES PURPOSFULLY THIS SHIFT. CENTRAL LINE TO RIJ REMAINS C/D/I. VITAL SIGNS STABLE WITH LEVOPHED INFUSING AT 4 MCG/MIN. NS INFUSING TKO. OGT IN PLACE WITH TF INFUSING AT 25 ML/HR GOAL RATE. WRIGHT TEMP PROBE IN PLACE WITH MINIMAL AMOUNT OF YELLOW URINE OUTPUT NOTED. SBW RESTRAINTS IN PLACE. PT WITH MULTIPLE SKIN TEARS AND WOUNDS TO BUE'S UNCHANGED. DRESSINGS TO BUE'S C/D/I. PT STEP DAUGHTER IN TO SEE PT THIS AFTERNOON. DISCUSSED PLAN OF CARE WITH DR DEWITT AT BEDSIDE. PT MADE DNR STATUS. WILL CONTINUE TO MONITOR AND REPORT OFF TO ONCOMING RN.
--- NOTE | 2020-08-27 19:25 | NUR ---
ASSUMED CARE OF PT, BEDSIDE REPORT RECEIVED. PT IS NOTED SEDATED AND INTUBATED, VENT SETTINGS AC 18, TV 450, FIO2 40% AND PEEP 5.0, CURRENT RATE 18-20, TIDAL VOLUMES NEAR 460, SATS MAINTAINING LOW TO MID 90S, SPO2 PROBED NOTED TO RIGHT EARLOBE AT THIS TIME, LUNGS ARE CLEAR TO AUSCULTATION AT THIS TIME HOWEVER RT RECENTLY COMPLETED ETT SUCTIONING. SINUS WITH PACS NOTED ON MONITOR, RATE CONTROLLED, SBP NOTED 110S WITH LEVOPHED AT 4 MCG/MIN, DECREASED TO 3 MCG/MIN DURING BEDSIDE REPORT, WILL MONITOR. DRESSINGS NOTED IN PLACE TO SKIN TEARS MID CHEST AND BILATERAL ARMS, SMALL AMOUNT OF WEEPING EDEMA NOTED TO LEFT HAND, SMALL AMOUNT OF SEROSANGUINOUS DRAINAGE NOTED TO DRESSINGS TO ARMS, WILL PLAN TO CHANGE DRESSINGS WITH BEDBATH AND PRN TO MAINTAIN CDI. HYPOACTIVE BOWEL TONES ARE NOTED, MINIMAL RESIDUAL PRESENT AT THIS TIME, VITAL HIGH PROTEIN INFUSING AT GOAL RATE OF 25 ML/HR WITH WATER 30 ML EVERY 4 HOURS FLUSH. ABD IS SOFT, NO GRIMACING/AGITATION WITH PALPATION. TEMP PROBE WRIGHT IN PLACE DRAINING CLEAR DARK YELLOW URINE TO GRAVITY, WILL MONITOR. CENTRAL LINE NOTED TO RIGHT IJ, SITE WNL, DRESSING CDI.
--- NOTE | 2020-08-27 22:34 | NUR ---
DAUGHTER'S CALLED FOR UPDATE ON PT CONDITION PT DAUGHTER'S CALLED ICU REQUESTING UPDATE ON PT CONDITION. DAUGHTERS ARE TEARFUL ON PHONE AND REPEAT THAT THEY "JUST WANT HIM TO BE COMFORTABLE AND PEACEFUL" "WE DON'T WANT HIM TO GO" "WE DON'T WANT HIM TO SUFFER EITHER" THIS RN INQUIRED IF PT'S DAUGHTERS WOULD LIKE INFORMATION PACKETS PLACED AT BEDSIDE REGARDING COMFORT CARE, MAKING DECISIONS ABOUT ICU CARE, AND CHOICES REGARDING LIFE SUPPORT. DAUGHTERS STATE THAT THEY WOULD LIKE THAT. INFORMATION PAMPHLETS PLACED AT PT BEDSIDE.
[2020-08-28 04:32] LABS: BASOPHILS ABSOLUTE AUTO 0.02 K/mm3 (0.00-0.23); BASOPHILS PERCENT AUTO 0 % (0-2); EOSINOPHILS PERCENT AUTO 0 % (0-6); Hematocrit 28.6 % (37.0-53.0); Hemoglobin 9.4 g/dL (13.5-17.5); IMMATURE GRAN ABSOLUTE AUTO 0.21 K/mm3 (0.00-0.10); IMMATURE GRAN PERCENT AUTO 1 % (0-1); LYMPHOCYTES ABSOLUTE AUTO 0.52 K/mm3 (0.84-5.20); LYMPHOCYTES PERCENT AUTO 3 % (21-46); MONOCYTES PERCENT AUTO 8 % (4-13); Mean Corpuscular HGB 26.6 pg (26.0-34.0); Mean Corpuscular HGB Conc 32.9 g/dL (31.5-36.5); Mean Corpuscular Volume 81 fL (80-100); NEUTROPHILS ABSOLUTE AUTO 13.69 K/mm3 (1.96-9.15); NEUTROPHILS PERCENT AUTO 88 % (41-73); Platelet Count 138 K/mm3 (150-400); RDW Coefficient Variation 14.6 % (11.7-14.2); Red Blood Cell Count 3.54 M/mm3 (4.30-5.90); White Blood Cell Count 15.64 K/mm3 (4.00-11.30)
[2020-08-28 04:49] LABS: Anion Gap 4 mmol/L (6-16); Blood Urea Nitrogen 20 mg/dL (8-24); Bun/Creatinine Ratio 24.6 (12.0-20.0); CO2, Blood 31 mmol/L (21-32); Calcium, Blood 7.9 mg/dL (8.5-10.1); Chloride, Blood 106 mmol/L (98-108); Creatinine, Blood 0.81 mg/dL (0.60-1.20); Glomerular Filtration Rate >60 (60-); Glucose, Blood 126 mg/dL (70-99); Magnesium, Blood 1.8 mg/dL (1.6-2.4); Phosphorus, Blood 3.3 mg/dL (2.5-4.9); Potassium, Blood 3.8 mmol/L (3.5-5.5); Sodium, Blood 141 mmol/L (136-145)
--- NOTE | 2020-08-28 06:53 | NUR ---
PT REMAINS INTUBATED AND SEDATED THROUGHOUT SHIFT. TOLERATES TURNS AND REPOSITIONING WELL, NO PURPOSEFUL MOVEMENT NOTED HOWEVER INCREASED COUGH/GAG NOTED WITH DECREASES IN SEDATION, GRIMACES WITH ORAL CARE, INCREASED COUGH AND GAG WITH ORAL CARE. MULTIPLE WOUNDS, PT TURNED EVERY 2 HOURS WITH INCREASED AWARENESS TO MAINTAIN WRINKLE FREE LINENS, SPO2 PROBE THIS SHIFT HAS BEEN EAR CLIP, MOVED WITH Q2 HOUR TURNS AND PRN FOR POOR SIGNAL. HEELS FLOATED ON PILLOWS AND ENMA MEPILEX HEEL PROTECTORS ARE UNAVAILABLE AT THIS TIME. LUNGS INTERMITTENTLY COARSE HOWEVER CLEAR WITH ETT SUCTIONING, THIS IS PRODUCTIVE OF MODERATE AMOUNT OF THICK YELLOW/GREEN SPUTUM, SATS MAINTAIN WITH VENT SETTINGS UNCHANGED THROUGHOUT SHIFT. HEART RATE 110S TO LOW 120S, PRESSURES MAINTAINING WITH LEVOPHED AT 6 MCG/MIN OF THIS TIME, PULSES FULL X 4 EXTREMITIES, EDEMA CONTINUES. CONTINUES TO TOLERATE TUBE FEEDS AT GOAL, MINIMAL RESIDUALS THROUGHOUT NOC.
--- NOTE | 2020-08-28 07:00 | NUR ---
ASSUMED CARE PATIENT RESTING IN BED INTUBATED AND SEDATED, LEVO @6, PROPOFOL @25. NO PURPOSEFUL MOVEMENT, PUPILS REACTIVE, DOES NOT TRACK OR FOLLOW COMMANDS. SHERLEY WRIGHT IN PLACE IS NOT WORKING AND NEEDS TO BE REPLACED
[2020-08-28 08:58] LABS: Vancomycin, Trough 17.9 ug/mL (5.0-10.0)
--- NOTE | 2020-08-28 10:00 | NUR ---
OLD WRIGHT REMOVED DUE TO FAULTY TEMP PROBE. NEW WRIGHT PLACED WITH TEMP PROBE. NOW TEMP PROBE WORKING FINE
--- NOTE | 2020-08-28 14:30 | NUR ---
PT'S DAUGHTER IS HERE AND DR. ZAPATA AND RACHELE FROM [facility] SPOKE TO BOTH DAUGHTERS. THEY ARE GOING TO WITHDRAWEL CARE, AND PLACE HIM ON COMFORT CARE. ONE DAUGHTER WILL NOT COME IN UNTIL HIS ET TUBE IS REMOVED. SHE IS NOT COMFORTABLE SEEING IT.
--- NOTE | 2020-08-28 16:00 | NUR ---
Spiritual care visit conducted. Patient's daughter, Toño, is present and we discuss extubation and the weight she feels to make such a decision. This opened up great dialogue, times of reflection and space for prayer. Toño states that the visit was very comforting and that she has much more peace regarding the removal of care. I will continue to remain available to patient and family.
--- NOTE | 2020-08-28 16:31 | NUR ---
Meeeting with daughters and intesivist. Pt daughter relay great decline th past year. Review of his prognosis and chages. They were offered to stay the course or with draw care today. They stuggled spiritual and asked many questions about the process. Asfter great though and discussion they feel their father would not want to stay on ventilator. Chaplian called and plan is to with draw care. Daughter left as they feel they could not see him that way.
--- NOTE | 2020-08-28 18:39 | NUR ---
SHIFT SUMMMARY DAUGHTERS CAME IN AND DECIDED TO WITHDRAW CARE. SEDATION TURNED OFF, 4MG MORPHINE GIVEN AND PT EXTUBATED. NO ISSUES WITH EXTUBATION. PT CONTINUES TO BREATH ON HIS OWN, NOT FOLLOWING COMMANDS OR TRACKING. HAS DEEP GURGLING COUGH, BUT NOT STRONG ENOUGH TO COUGH IT UP AND SUCTION NOT EFFECTIVE. MOUTH IS DRY, CONTINUE TO DO MOUTH CARE. DAUGHTERS WILL CALL AND GET UPDATES NEEDED. AWAITING TRANSFER TO A MEDICAL FLOOR
--- NOTE | 2020-08-29 03:15 | NUR ---
THIS RN AT BEDSIDE WHEN PT BECAME APNEIC, NO PALPABLE PULSE, NO HEART TONES TO AUSCULTATION, ASYSTOLE NOTED ON MONITOR. NURSING NEEDLE LOOM SETTER WANDA BOYLE NOTIFIED, MINGLE OPERATOR KILO VILLASEÑOR NOTIFIED, CALL PLACED TO DAUGHTERS ANH, THEIR HOME OF PREFERENCE IS [facility] IN [facility]. DR SAENZ NOTIFIED, RESISTANCE BRAZER ANSWERING SERVICE NOTIFIED.
--- NOTE | 2020-08-29 08:29 | NUR ---
Supportive call to patient family for grief support.
== END 2020-08-29 03:15 | DRG 871 ==
LOC: ER 22:03 → ICUW 23:29 → ER 23:29 → ICUE 23:29 → ICUW 08-27 00:13 → ICUE 08-27 00:50 → ICUW 08-27 00:50 → ICUE 08-28 17:23
PROVIDERS: Emergency Medicine; Internal Medicine Pulmonary Disease; Pharmacist; ADMIT Internal Medicine
PROC: 5A2204Z Restoration of Cardiac Rhythm, Single (ICD-10-PCS; principal; 2020-08-26)
PROC: 0BH18EZ Insertion of Endotracheal Airway into Trachea, Via Natural or Artificial Opening Endoscopic (ICD-10-PCS; 2020-08-26)
PROC: 5A1945Z Respiratory Ventilation, 24-96 Consecutive Hours (ICD-10-PCS; 2020-08-26)
PROC: 02HV33Z Insertion of Infusion Device into Superior Vena Cava, Percutaneous Approach (ICD-10-PCS; 2020-08-26)
PROC: 3E043XZ Introduction of Vasopressor into Central Vein, Percutaneous Approach (ICD-10-PCS; 2020-08-26)
DX: A41.9 Sepsis, unspecified organism (principal); J96.02 Acute respiratory failure with hypercapnia; E43 Unspecified severe protein-calorie malnutrition; J96.21 Acute and chronic respiratory failure with hypoxia; J18.9 Pneumonia, unspecified organism; S22.42XA Multiple fractures of ribs, left side, initial encounter for closed fracture; E87.2 Acidosis; J44.0 Chronic obstructive pulmonary disease with (acute) lower respiratory infection; E87.1 Hypo-osmolality and hyponatremia; Z79.01 Long term (current) use of anticoagulants; Z20.822 Contact with and (suspected) exposure to COVID-19; Z51.5 Encounter for palliative care; E78.5 Hyperlipidemia, unspecified; F17.210 Nicotine dependence, cigarettes, uncomplicated; E88.09 Other disorders of plasma-protein metabolism, not elsewhere classified; F10.20 Alcohol dependence, uncomplicated; E86.0 Dehydration; I48.91 Unspecified atrial fibrillation; Z66 Do not resuscitate; Y90.0 Blood alcohol level of less than 20 mg/100 ml; T14.8XXD Other injury of unspecified body region, subsequent encounter; W19.XXXD Unspecified fall, subsequent encounter; Z91.81 History of falling; S32.020D Wedge compression fracture of second lumbar vertebra, subsequent encounter for fracture with routine healing; Z78.1 Physical restraint status; Z68.21 Body mass index [BMI] 21.0-21.9, adult
CPT/HCPCS: 0241U; 31500; 36415; 36556; 36600; 51702; 70450; 71045; 71260; 80047; 80048; 80053; 80202; 81001; 82550; 82803; 82947; 83605; 83735; 83880; 84100; 84484; 85014; 85025; 85610; 85730; 87040; 87070; 87205; 92950; 93005; 93010; 93306; 94002; 94003; 94640; 96365-59; 96367-59; 96375-59; 99291-25; 99292; A9270; C1751; G0480; J1100; J1940; J1956; J2060; J2250; J2270; J2543; J2704; J2920; J2930; J3010; J3370; J3475; J7030; J7050; J7060; P9046; Q9967